=== PATIENT | female | born 1990 ===

== ENCOUNTER 2018-09-22 00:11 | Emergency (ER) | payer OTHER ==
--- NOTE | 2018-09-22 01:32 | ED ---
Lower Extremity - HPI Summary HPI Summary: Patient is an otherwise healthy 28 y/o female with moderate right foot pain after stepping on her foot incorrectly while dancing. States pain is worse with walking. Denies numbness, tingling. No other complaints at this time. - History of Current Complaint Chief Complaint: EDExtremityLower Stated Complaint: PAIN IN RIGHT FOOT Time Seen by Provider: 09/22/18 00:22 Hx Obtained From: Patient Mechanism Of Injury: Blunt Trauma Onset of Pain: Immediate Onset/Duration: Hours Severity Initially: Moderate Severity Currently: Moderate Pain Intensity: 9 Pain Scale Used: 0-10 Numeric Timing: Constant Location: Is Discrete @ - distal right fifth metatarsal Character Of Pain: Sharp Associated Signs And Symptoms: Positive: Bruising. Negative: Swelling, Redness Aggravating Factor(s): Ambulation, Movement Alleviating Factor(s): Nothing Able to Bear Weight: Yes - Allergies/Home Medications Allergies/Adverse Reactions: Allergies Allergy/AdvReac Type Severity Reaction Status Date / Time almond Allergy Swelling Verified 09/22/18 00:36 Of Face,Lips,& Throat carrot Allergy Swelling Verified 09/22/18 00:36 Of Face,Lips,& Throat soy Allergy Nausea And Verified 09/22/18 00:36 Vomiting PMH/Surg Hx/FS Hx/Imm Hx Previously Healthy: Yes - Surgical History Surgical History: Yes Surgery Procedure, Year, and Place: right first metatarsal tendon repair Infectious Disease History: No Infectious Disease History: Denies: Traveled Outside the [place] in Last 30 Days - Family History Known Family History: Positive: Non-Contributory - Social History Hx Tobacco Use: No Review of Systems Negative: Fever, Chills Negative: Chest Pain Positive: Myalgia - Right foot. Negative: Edema All Other Systems Reviewed And Are Negative: Yes Physical Exam Triage Information Reviewed: Yes Vital Signs On Initial Exam: Initial Vitals Temp Pulse Resp BP Pulse Ox 98.2 F 78 16 124/78 97 09/22/18 00:35 09/22/18 00:35 09/22/18 00:35 09/22/18 00:35 09/22/18 00:35 Vital Signs Reviewed: Yes Appearance: Positive: Well-Appearing, No Pain Distress Skin: Positive: Warm, Skin Color Reflects Adequate Perfusion, Dry Head/Face: Positive: Normal Head/Face Inspection Eyes: Positive: Normal ENT: Positive: Normal ENT inspection Respiratory/Lung Sounds: Positive: Clear to Auscultation, Breath Sounds Present. Negative: Rales, Rhonchi, Wheezes Cardiovascular: Positive: RRR. Negative: Murmur, Rub Musculoskeletal: Positive: Pain @ - Distal right fifth metatarsal., Other - Bruise at distal fifth right metatarsal. No lateral or medial malleolus pain. No swelling, no erythema. NV intact. Sensation intact. Neurological: Positive: Normal Psychiatric: Positive: Normal Procedures - Splinting Right foot Location: Post-op shoe, right foot Pre-Proc Neuro Vasc Exam: normal Post-Proc Neuro Vasc Exam: normal, unchanged from pre-exam Diagnostics - Vital Signs Vital Signs Temp Pulse Resp BP Pulse Ox 09/22/18 00:35 98.2 F 78 16 124/78 97 - Laboratory Lab Statement: Any lab studies that have been ordered have been reviewed, and results considered in the medical decision making process. - Radiology Right foot x-ray Radiology Interpretation Completed By: ED Physician Summary of Radiographic Findings: Fracture of head of right fifth metatarsal Lower Extremity Course/Dx - Course Course Of Treatment: 28 y/o female with pinpoint right foot pain at distal fifth metatarsal. X-ray shows fracture at head of fifth metatarsal. Given post- op shoe in the ED. To f/u with PCP and orthopedics. Assessment/Plan: Patient was seen in collaboration with the PA student. Fracture as above. - Diagnoses Differential Diagnosis/HQI/PQRI: Positive: Contusion, Fracture (Closed), Sprain , Strain Provider Diagnoses: Fracture of fifth metatarsal bone of right foot Discharge - Sign-Out/Discharge Documenting (check all that apply): Patient Departure Patient Received Moderate/Deep Sedation with Procedure: No - Discharge Plan Condition: Improved Disposition: HOME Patient Education Materials: Foot Fracture in Adults (ED) Referrals: Chantal Elliott MD [Medical Doctor] - Additional Instructions: Ice, elevate, ibuprofen, Tylenol for discomfort. Call the orthopedist for follow-up if pain persists past one week. Postop shoe to be worn for comfort for 2 weeks. Return if worse, new symptoms or other concerns. - Billing Disposition and Condition Condition: IMPROVED Disposition: Home - Attestation Statements Document Initiated by Scribe: Yes Documenting Scribe: Scotlynne Rieder, PA-S Provider For Whom Scribe is Documenting (Include Credential): Dr. Walker Scribe Attestation: Petr Paul PA-S, scribed for Dr. Walker on 09/22/18 at 0240. Scribe Documentation Reviewed: Yes Provider Attestation: The documentation as recorded by the Petr macedo PA-S accurately reflects the service I personally performed and the decisions made by Dr. Denise stone Status of Scribe Document: Viewed
[2018-09-22] MEDS ORDERED: Ibuprofen TAB* 600 MG PO ONE (01:36)
[2018-09-22 02:05] VITALS: BP 0/0
== END 2018-09-22 01:59 | disposition home or self-care (01) ==
LOC: ED 00:11
DX: S92.351A Displaced fracture of fifth metatarsal bone, right foot, initial encounter for closed fracture (principal); M79.671 Pain in right foot; X50.0XXA Overexertion from strenuous movement or load, initial encounter; Y93.41 Activity, dancing; Y92.9 Unspecified place or not applicable
CPT/HCPCS: 99282; A9270-GY